=== PATIENT | female | born 1980 | race Caucasian/White ===

== ENCOUNTER 2020-01-25 09:33 | Outpatient (REF) | payer OTHER, SELFPAY ==
[2020-01-25 10:10] LABS: MANUAL DIFF FLAG NO
[2020-01-25 10:17] LABS: Basophils Percent Auto 0.4 % (0-2); Eosinophils Absolute Auto 0.1 X10*3/uL (0.0-0.4); Eosinophils Percent Auto 1.7 % (0-4); Hematocrit 42.7 % (37-47); Hemoglobin 13.8 g/dl (12.0-16.0); Imm Gran Abs Auto 0.03 X10*3/uL (0.00-0.03); Imm Gran Pct Auto 0.4 % (0.0-0.4); Lymphocytes Absolute Auto 2.9 X10*3/uL (1.2-4.9); Lymphocytes Percent Auto 41.8 % (20-40); Mean Corpuscular HGB Conc 32.3 g/dl (31.0-35.0); Mean Corpuscular Hemoglobin 28.6 pg (27.0-33.0); Mean Corpuscular Volume 88.6 fL (80-98); Mean Platelet Volume 9.5 fL (9.4-12.3); Monocytes Absolute Auto 0.4 X10*3/uL (0.1-1.2); Monocytes Percent Auto 5.8 % (2-11); Neutrophils Absolute Auto 3.5 X10*3/uL (2.0-8.3); Neutrophils Percent Auto 49.9 % (45-73); Platelet Count 328 X10*3/uL (160-400); Red Blood Count 4.82 X10*6/uL (4.20-5.50); Red Cell Distribution Width 12.3 % (11.0-16.0)
[2020-01-25 10:53] LABS: Alanine Aminotransferase 20 U/L (0-31); Albumin Level 4.5 g/dL (3.5-5.0); Alkaline Phosphatase 48 U/L (39-117); Anion Gap 13 (12-20); Aspartate Amino Transferase 17 U/L (5-31); Bilirubin Total 0.2 mg/dL (0.0-1.0); Blood Urea Nitrogen 12 mg/dL (9-16); Carbon Dioxide 26 mmol/L (22-29); Chloride 104 mmol/L (96-108); Cholesterol 134 mg/dL; Estimated Glomerular Filt Rate > 60; Glucose Fasting 89 mg/dL (60-99); HDL Cholesterol 46 mg/dL; LDL Cholesterol Calculated 71 mg/dl; Potassium 4.6 mmol/l (3.3-5.1); Sodium 138 mmol/L (135-145); Total Protein 7.3 g/dL (6.5-8.0); Triglycerides 87 mg/dL
[2020-01-27 08:31] LABS: HIV AB/AG Nonreactive (Nonreactive); HIV Num 1 0.09 S/CO (0.00-0.99)
== END 2020-01-25 09:34 | disposition home or self-care (01) ==
LOC: HO.LAB 09:33
PROVIDERS: PCP Internal Medicine; Visit Provider Internal Medicine
DX: E66.9 Obesity, unspecified (principal); G56.03 Carpal tunnel syndrome, bilateral upper limbs; I10 Essential (primary) hypertension; Z68.36 Body mass index [BMI] 36.0-36.9, adult
CPT/HCPCS: 36415; 80053; 80061; 84443; 85025; 87389

== ENCOUNTER 2020-02-05 13:13 | Outpatient (REF) | payer OTHER, SELFPAY | END 2020-02-05 13:14 | disposition home or self-care (01) | LOC: HO.LAB 13:13 | PROVIDERS: Visit Provider Internal Medicine | DX: Z20.828 Contact with and (suspected) exposure to other viral communicable diseases (principal) | CPT/HCPCS: C9803; U0003 ==

== ENCOUNTER 2020-03-03 10:13 | Outpatient (REF) | payer OTHER, SELFPAY | END 2020-03-03 10:14 | disposition home or self-care (01) | LOC: HO.LAB 10:13 | PROVIDERS: Visit Provider Internal Medicine | DX: Z20.828 Contact with and (suspected) exposure to other viral communicable diseases (principal) | CPT/HCPCS: C9803; U0003 ==

== ENCOUNTER 2020-06-15 15:04 | Outpatient (REF) | payer OTHER, SELFPAY ==
--- NOTE | 2020-06-17 15:17 | MHC.AU.ANO ---
Adult Audiological Evaluation Date of Visit: 06/15/20 Reason for Appointment: Patient has been noticing occsional difficulty hearing. She notes that she has to have the television volume at a loud level. She has difficulty hearing soft spoken people and hearing in noise. She feels the left ear is worse. 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 Medical History: Medical History: High Blood Pressure Otoscopy: Right Ear: Unremarkable Left Ear: Unremarkable Tympanometry: Tympanometry performed due to: To assess integrity of the middle ear system Right Ear: Normal Middle Ear System (Type A) Left Ear: Normal Middle Ear System (Type A) Otoacoustic Emissions Frequency Range Used: 1.5-12 kHz Right Ear Results: Normal 1.5-4.0 kHz, Reduced 5.0-12 kHz Analysis: Reduced/Absent emissions suggest cochlear dysfunction Left Ear Results: Normal 1.5-3 kHz, Reduced 5.0-12 kHz Analysis: Reduced/Absent emissions suggest cochlear dysfunction Hearing Evaluation: Transducer(s) Used: Insert Earphones Method: Conventional Audiometry Stimuli Used: Pure Tones Right Ear: Description of Hearing: Normal hearing from 250-8000 Hz Left Ear: Description of Hearing: Overall normal hearing, with one borderline-normal threshold at 4000 Hz Speech Recognition Threshold (SRT): Method Used: Recorded Lists Stimuli Used: Spondee Words Right Ear: 10 dBHL Left Ear: 10 dBHL Word Discrimination: Method: Recorded Lists Word Lists Used: NU-6 Right Ear: 100% at 50 dBHL Left Ear: 92% at 50 dBHL QuickSIN: Right: 3 dB SNR loss, Left: 5 dB SNR loss Interpretation of Results: Hearing thresholds are overall normal bilaterally, with exception of one borderline-normal threshold at 4000 Hz in the left ear. OAEs were reduced bilaterally in the high frequencies. Word discrimination in the left ear was slightly lower, but not by a statistically significant amount. QuickSIN in the left ear showed slightly more difficulty than the right, but not by a significant amount. Recommendations: Audiological re-evaluation is recommended in one year, or sooner if changes are noted. If perception of left-sided difficulty persists or increases, consultation with Ear, Nose, and Throat may be warranted. Use of hearing protection at work is highly recommended when loud machinery is in use. Diagnosis: Primary Diagnosis: H93.293 Abnormal Auditory Perception Services Performed: Comprehensive Audiological Evaluation (CPT 70614), Diagnostic Otoacoustic Emissions (CPT 84256, 26+TC), Tympanometry (CPT 74366) Signature: Provider: Marleen Chapman, CCC-A
== END 2020-06-15 15:05 | disposition home or self-care (01) ==
LOC: HO.SH 15:04
PROVIDERS: Visit Provider Internal Medicine
DX: H93.293 Other abnormal auditory perceptions, bilateral (principal)
CPT/HCPCS: 92557; 92567; 92588

== ENCOUNTER 2020-06-29 08:59 | Day surgery (SDC) | payer OTHER, SELFPAY ==
[2020-06-23 10:22] VITALS: BMI 34.9
[2020-06-29 09:12] VITALS: BP 156/85; PULSE 102; RESP 18; TEMP 36.5; O2SAT 98; BMI 34.9
[2020-06-29 09:15] LABS: UPreg QC Valid YES; Urine Pregnancy NEGATIVE (NEGATIVE)
[2020-06-29] MEDS: Lactated Ringers 1,000 ML 50 ML IV (09:34)
--- NOTE | 2020-06-29 09:34 | P.CONAN_ITS ---
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 If so, by whom?: No Advance Directives Information Provided: No Recently lost weight without trying: No Meds Allergies Allergy/AdvReac Type Severity Reaction Status Date / Time No Known Allergies Allergy Verified 06/23/20 10:38 [No Known Allergies*] Active Medications: Current Medications Generic Name Dose Route Start Last Admin Trade Name Freq PRN Reason Stop Dose Admin Lactated Ringer's 1,000 mls @ 50 mls/hr 06/29/20 07:30 Lr IV .Q20H [facility] Home Medications Medication Instructions Recorded Confirmed Last Taken Type omeprazole 40 mg PO DAILY 06/23/20 06/23/20 Unknown History Exam Exam Date and Time: June 29, 2020 0934 Height,Weight and Vital Signs: Height 5 ft 5 in Weight 95.254 kg Last Vital Signs Temp 97.7 F 06/29/20 09:12 Pulse 102 H 06/29/20 09:12 Resp 18 06/29/20 09:12 BP 156/85 H 06/29/20 09:12 Pulse Ox 98 06/29/20 09:12 Pertinent Lab Results Pertinent Lab Results: Laboratory Tests 06/29/20 09:05 Urine Test NEGATIVE Airway Mallampati Class: II (Caps lateral) TM Dist: >3cm Neck ROM: Full Heart: RrR Lungs: CTA BL Assessment and Plan Assessment Anesthesia Assessment: Anesthesia Plan Discussed and Chart Reviewed Final Anesthetic Review NPO: Yes ASA Class: I Final Preanesthetic Review: No Changes in Pt Med Stat and Consent Obtained/Reviewed Patient Risk: Intermediate Procedure Risk: Intermediate Anesthetic Plan Anesthetic Plan: MAC: Disposition: Standard PACU
[2020-06-29 11:11] VITALS: BP 106/61; PULSE 82; RESP 16; TEMP 36.1; O2SAT 95
--- NOTE | 2020-06-29 11:19 | PM.OP ---
Brief Operative Note Date of Service: 06/29/20 Pre-op diagnosis: Dysphagia Post-op diagnosis: other (Narrowing at EG Junction, R/O EOE, ? of Achalasia) Procedure: EGD with Balloon dilation and biopsies Surgeon: Chad Reyes Anesthesia: MAC Estimated blood loss (mL): 4.0 Pathology: other (A. Esophagus at 25cm) Condition: stable Disposition: PACU
[2020-06-29 11:26] VITALS: BP 120/73; PULSE 66; RESP 18; O2SAT 97
--- NOTE | 2020-06-29 11:37 | OP_ITS ---
SURGEON: Chad Reyes MD INDICATIONS: Full consent has been obtained from her for this, including risks of bleeding and perforation. PREOPERATIVE DIAGNOSIS: Dysphagia. POSTOPERATIVE DIAGNOSIS: PROCEDURE PERFORMED: Esophagogastroduodenoscopy with balloon dilation of gastroesophageal junction, and biopsies. ESTIMATED BLOOD LOSS: COMPLICATIONS: ANESTHESIA: Monitored anesthesia care. ASSISTANTS: SPECIMENS: POSTOPERATIVE DIAGNOSES: Dysphagia, apparent esophageal stricture at gastroesophageal junction, question of achalasia, rule out eosinophilic esophagitis. DESCRIPTION OF PROCEDURE: The patient was placed in the left lateral decubitus position. The Olympus video gastroscope was passed into the posterior oropharynx and upper esophagus under direct vision. The scope was passed slowly into the distal esophagus. The gastroesophageal junction appeared at 38 cm. With insufflation of air, I was able to visualize the lumen, but there was definitely some puckering right at the gastroesophageal junction. The entire esophagus did appear to be somewhat dilated with some diminished peristalsis, although this did not appear overly apparent. There were no esophageal mucosal abnormalities and no sign of any proximal esophageal rings. With gentle pressure, I was able to advance the scope from the esophagus into the stomach. However, there was definitely a pop sensation as the scope entered into the stomach. There was a minimal hiatal hernia. The scope was advanced to the pylorus and the duodenum was cannulated to the descending portion. The duodenum including the bulb appeared normal without mass or ulceration. The scope was withdrawn back into the stomach. The gastric antrum and body appeared normal with good peristalsis. Scope was retroflexed visualizing the proximal stomach carefully, which appeared normal, without any sign of mass or ulceration. The scope was straightened out and withdrawn back into the esophagus. Again, there was no sign of any inflammation, Kumari's mucosa, nor any definitive stricture, although again the gastroesophageal junction did appear tight. I did use [employer] incremental balloons to dilate the gastroesophageal junction from 12 mm to 15 mm at the recommended pressure for between 30 and 60 seconds each. I then used an 18 mm to a 19 mm to a 20 mm balloon at the recommended pressure for 30 and 60 seconds each. Post dilation, there was heme noted and was definitely easier to move the scope from the esophagus into the stomach. The scope was withdrawn through the remainder of the esophagus, which appeared normal other than what appeared to be some component of a dilated esophagus and diminished peristalsis. There were no proximal esophageal rings. Biopsies were obtained at 25 cm. The scope was withdrawn from the patient. She tolerated the procedure well and was returned to the recovery area in stable condition. IMPRESSION: 1. Component of narrowing and/or stricture at the gastroesophageal junction, status post balloon dilation. 2. Rule out eosinophilic esophagitis. 3. Question of achalasia. PLAN: The results of the biopsies will be checked. She will continue Prilosec, but I shall increase that to b.i.d. for the time being. Depending upon the clinical results, we may need to proceed with esophageal motility studies to assess for any underlying achalasia and possibly barium swallow. MD CAPRI Bazan/MOE / [id number]
[2020-06-29 11:41] VITALS: BP 133/82; PULSE 62; RESP 20; TEMP 36.7; O2SAT 99
== END 2020-06-29 12:13 | disposition home or self-care (01) ==
PROVIDERS: PCP Internal Medicine; Visit Provider Internal Medicine
PROC: (CPT 43249; principal; 2020-06-29 09:50)
DX: K22.2 Esophageal obstruction (principal); K21.9 Gastro-esophageal reflux disease without esophagitis; K44.9 Diaphragmatic hernia without obstruction or gangrene; Z86.16 Personal history of COVID-19; Z79.899 Other long term (current) drug therapy
CPT/HCPCS: 43249; 43239; 81025; 88305; C1726

== ENCOUNTER 2020-10-13 09:33 | Outpatient (REF) | payer OTHER, SELFPAY ==
--- NOTE | ~2020-10-13 | FL_ITS ---
EXAMINATION: FL BARIUM SWALLOW CLINICAL INFORMATION: Dysphagia. Question achalasia. COMPARISON: None TECHNIQUE: Barium swallow examination is performed using fluoroscopic evaluation in addition to multiple fluoroscopic spot views. The patient is imaged both upright and prone and using both thick and thin sulfate along with effervescent granules. Fluoroscopy time: 1.5 minutes DAP: 65 Gycm2 Images: 57 FINDINGS: The swallowing mechanism is normal appearing. No aspiration or penetration is seen. The esophagus is dilated down to the GE junction. This has the appearance of achalasia. The esophagus remained dilated for a long period of time and then emptied rapidly. Abnormal esophageal motility with retrograde peristalsis was seen patient in the upright position. There was temporary stasis of the barium tablet in the distal esophagus at the GE junction. The esophagus never fully opened at the GE junction suggestive of a stricture No gastroesophageal reflux is seen. FL/FL barium swallow IMPRESSION: Dilated thoracic esophagus down to the GE junction and abnormal abnormal motility with retrograde peristalsis with the patient in the upright position. This has the appearance of achalasia or possibly severe spasm. The esophagus never fully opened at the GE junction suggestive of a stricture.
== END 2020-10-13 09:34 | disposition home or self-care (01) ==
LOC: HO.XRAY 09:33
PROVIDERS: Visit Provider Internal Medicine
DX: R13.10 Dysphagia, unspecified (principal)
CPT/HCPCS: 74220

== ENCOUNTER 2021-02-17 14:11 | Outpatient (REF) | payer OTHER, SELFPAY ==
[2021-02-17 14:27] LABS: MANUAL DIFF FLAG NO
[2021-02-17 14:40] LABS: Basophils Percent Auto 0.3 % (0-2); Eosinophils Absolute Auto 0.1 X10*3/uL (0.0-0.4); Hematocrit 39.2 % (37.0-47.0); Hemoglobin 12.7 g/dl (12.0-16.0); Imm Gran Abs Auto 0.03 X10*3/uL (0.00-0.03); Imm Gran Pct Auto 0.3 % (0.0-0.4); Lymphocytes Absolute Auto 3.5 X10*3/uL (1.2-4.9); Lymphocytes Percent Auto 35.7 % (20-40); Mean Corpuscular HGB Conc 32.4 g/dl (31.0-35.0); Mean Corpuscular Hemoglobin 27.8 pg (27.0-33.0); Mean Corpuscular Volume 85.8 fL (80.0-98.0); Mean Platelet Volume 9.4 fL (9.4-12.3); Monocytes Absolute Auto 0.5 X10*3/uL (0.1-1.2); Monocytes Percent Auto 5.5 % (2-11); Neutrophils Absolute Auto 5.6 x10*3/uL (2.0-8.3); Neutrophils Percent Auto 57.2 % (45-73); Platelet Count 325 X10*3/uL (160-400); Red Blood Count 4.57 X10*6/uL (4.20-5.50); White Blood Count 9.8 X10*3/uL (4.8-10.8)
[2021-02-17 15:03] LABS: Alanine Aminotransferase 21 U/L (0-31); Albumin Level 4.4 g/dL (3.5-5.0); Alkaline Phosphatase 56 U/L (39-117); Anion Gap 9 (12-20); Aspartate Amino Transferase 19 U/L (5-31); Bilirubin Total 0.2 mg/dL (0.0-1.0); Blood Urea Nitrogen 12 mg/dL (9-16); Calcium 9.1 mg/dL (8.4-10.2); Carbon Dioxide 30 mmol/L (22-29); Chloride 101 mmol/L (96-108); Cholesterol 130 mg/dL; Estimated Glomerular Filt Rate > 60; Glucose Random 85 mg/dL (60-115); HDL Cholesterol 39 mg/dL; LDL Cholesterol Calculated 72 mg/dl; Potassium 3.5 mmol/L (3.3-5.1); Sodium 136 mmol/L (135-145); Total Protein 7.5 g/dL (6.5-8.0); Triglycerides 99 mg/dL
[2021-02-17 15:24] LABS: Thyroid Stimulating Hormone 0.95 uIU/mL (0.32-4.0)
[2021-02-17 15:28] LABS: Creatinine Urine 175.25 mg/dL; Protein/Creatinine Ratio, Ur 0.07 (<0.2); Total Protein Urine Random 13 mg/dL (<12)
== END 2021-02-17 14:12 | disposition home or self-care (01) ==
LOC: HO.LAB 14:11
PROVIDERS: PCP Internal Medicine; Visit Provider Internal Medicine
DX: Z00.01 Encounter for general adult medical examination with abnormal findings (principal); K22.0 Achalasia of cardia; J31.2 Chronic pharyngitis; I10 Essential (primary) hypertension; F17.201 Nicotine dependence, unspecified, in remission
CPT/HCPCS: 36415; 80053; 80061; 84156; 84443; 85025

== ENCOUNTER 2021-02-26 12:49 | Outpatient (REF) | payer OTHER, SELFPAY ==
--- NOTE | ~2021-02-26 | MM_ITS ---
EXAMINATION: MM DIAGNOSTIC DIGITAL BREAST TOMOSYNTHESIS, BILATERAL US DIAGNOSTIC ULTRASOUND BREAST, RIGHT CLINICAL INFORMATION: 40-year-old female with 3 episodes of bloody right nipple spotting with squeezing. Intermittent bilateral clear nipple discharge. No palpable mass. No prior breast imaging. No known family history breast cancer. The lifetime risk of breast cancer based on the Tyrer-Cuzick Model is 11%. COMPARISON: None (current study represents initial baseline exam). TECHNIQUE: Digital breast tomosynthesis is performed in both the craniocaudal and mediolateral oblique views along with computer-aided detection (CAD). Synthesized 2D images are generated from the tomosynthesis. Ultrasound ultrasound right breast is targeted to the retroareolar and periareolar region using grayscale imaging and color Doppler without and with harmonics. FINDINGS: There are scattered areas of fibroglandular density (ACR BI-RADS breast composition Category b). Breast tissue composition borders on predominantly fatty. There is no mass or architectural abnormality or abnormal calcifications. The axilla and skin contours are unremarkable. No duct ectasia. Ultrasound demonstrates no cystic or solid mass or architectural abnormality. No focal duct ectasia. No skin thickening or edema tracking in soft tissue planes. Results are discussed with the patient at time of visit. MM/MM tomosynthesis diagnostic BI IMPRESSION: No mammographic evidence of malignancy. Unremarkable targeted right breast ultrasound. ASSESSMENT: BI-RADS 1: Negative RECOMMENDATION: 1. Patient's intermittent scant nipple discharge should be managed based on the clinical impression. Given the history of bilateral involvement, correlation with laboratories should be considered. If there is recurrent bloody nipple discharge, MRI breasts without and with gadolinium contrast may be considered for further assessment. 2. Otherwise, routine annual screening mammography, beginning age 40, or earlier as clinical risk factors warrant. This patient's information was entered into a reminder system with a target due date for their next mammogram.
== END 2021-02-26 12:50 | disposition home or self-care (01) ==
LOC: HO.MAMMO 12:49
PROVIDERS: Visit Provider Internal Medicine
DX: N64.52 Nipple discharge (principal)
CPT/HCPCS: 76642; 77062; 77066

== ENCOUNTER 2022-03-30 08:10 | Outpatient (REF) | payer OTHER, SELFPAY ==
[2022-03-30 08:29] LABS: MANUAL DIFF FLAG NO
[2022-03-30 08:46] LABS: Basophils Percent Auto 0.5 % (0-2); Eosinophils Absolute Auto 0.1 X10*3/uL (0.0-0.4); Eosinophils Percent Auto 0.8 % (0-4); Hematocrit 42.6 % (37.0-47.0); Hemoglobin 13.4 g/dl (12.0-16.0); Imm Gran Abs Auto 0.04 X10*3/uL (0.00-0.03); Imm Gran Pct Auto 0.5 % (0.0-0.4); Lymphocytes Absolute Auto 2.7 X10*3/uL (1.2-4.9); Lymphocytes Percent Auto 30.4 % (20-40); Mean Corpuscular HGB Conc 31.5 g/dl (31.0-35.0); Mean Corpuscular Hemoglobin 26.5 pg (27.0-33.0); Mean Corpuscular Volume 84.4 fL (80.0-98.0); Mean Platelet Volume 9.2 fL (9.4-12.3); Monocytes Absolute Auto 0.6 X10*3/uL (0.1-1.2); Monocytes Percent Auto 6.3 % (2-11); Neutrophils Absolute Auto 5.4 x10*3/uL (2.0-8.3); Neutrophils Percent Auto 61.5 % (45-73); Platelet Count 348 X10*3/uL (160-400); Red Blood Count 5.05 X10*6/uL (4.20-5.50); Red Cell Distribution Width 13.1 % (11.0-16.0); White Blood Count 8.7 X10*3/uL (4.8-10.8)
[2022-03-30 08:56] LABS: Estimated Average Glucose 111 mg/dL; Hemoglobin A1c % 5.5 %
[2022-03-30 09:36] LABS: Alanine Aminotransferase 29 U/L (0-31); Albumin Level 4.3 g/dL (3.5-5.0); Alkaline Phosphatase 52 U/L (39-117); Anion Gap 10 (12-20); Aspartate Amino Transferase 23 U/L (5-31); Bilirubin Total 0.3 mg/dL (0.0-1.0); Blood Urea Nitrogen 12 mg/dL (9-16); Calcium 9.6 mg/dL (8.4-10.2); Carbon Dioxide 29 mmol/L (22-29); Chloride 102 mmol/L (96-108); Cholesterol 148 mg/dL; Estimated Glomerular Filt Rate > 60; Glucose Random 107 mg/dL (60-115); HDL Cholesterol 44 mg/dL; LDL Cholesterol Calculated 80 mg/dl; Potassium 4.1 mmol/L (3.3-5.1); Sodium 137 mmol/L (135-145); Thyroid Stimulating Hormone 1.31 uIU/mL (0.32-4.0); Total Protein 7.3 g/dL (6.5-8.0); Triglycerides 121 mg/dL
[2022-03-30 10:01] LABS: Creatinine Urine 226.21 mg/dL; Microalbum/Creatinine Ratio Ur 32.7 ug/mg cr; Total Protein Urine Random 23 mg/dL (<12)
== END 2022-03-30 08:11 | disposition home or self-care (01) ==
LOC: HO.LAB 08:10
PROVIDERS: PCP Internal Medicine; Visit Provider Internal Medicine
DX: Z00.00 Encounter for general adult medical examination without abnormal findings (principal); I10 Essential (primary) hypertension; F17.211 Nicotine dependence, cigarettes, in remission; R80.9 Proteinuria, unspecified
CPT/HCPCS: 36415; 80053; 80061; 82043; 83036; 84156; 84443; 85025

== ENCOUNTER 2023-01-16 10:34 | Outpatient (REF) | payer OTHER, SELFPAY ==
[2023-01-16 11:13] LABS: MANUAL DIFF FLAG NO
[2023-01-16 11:45] LABS: Basophils Absolute Auto 0.1 X10*3/uL (0.0-0.2); Basophils Percent Auto 0.6 % (0-2); Eosinophils Absolute Auto 0.1 X10*3/uL (0.0-0.4); Eosinophils Percent Auto 0.8 % (0-4); Hematocrit 42.1 % (37.0-47.0); Hemoglobin 13.4 g/dl (12.0-16.0); Imm Gran Abs Auto 0.06 X10*3/uL (0.00-0.03); Imm Gran Pct Auto 0.6 % (0.0-0.4); Lymphocytes Percent Auto 30.9 % (20-40); Mean Corpuscular HGB Conc 31.8 g/dl (31.0-35.0); Mean Corpuscular Hemoglobin 26.6 pg (27.0-33.0); Mean Corpuscular Volume 83.7 fL (80.0-98.0); Mean Platelet Volume 9.5 fL (9.4-12.3); Monocytes Absolute Auto 0.5 X10*3/uL (0.1-1.2); Monocytes Percent Auto 4.6 % (2-11); Neutrophils Absolute Auto 6.1 x10*3/uL (2.0-8.3); Neutrophils Percent Auto 62.5 % (45-73); Platelet Count 406 X10*3/uL (160-400); Red Blood Count 5.03 X10*6/uL (4.20-5.50); Red Cell Distribution Width 13.3 % (11.0-16.0); White Blood Count 9.8 X10*3/uL (4.8-10.8)
[2023-01-16 12:47] LABS: Alanine Aminotransferase 26 U/L (0-31); Albumin Level 4.4 g/dL (3.5-5.0); Alkaline Phosphatase 55 U/L (39-117); Anion Gap 14 (12-20); Aspartate Amino Transferase 22 U/L (5-31); Bilirubin Total 0.4 mg/dL (0.0-1.0); Blood Urea Nitrogen 10 mg/dL (9-16); Calcium 9.7 mg/dL (8.4-10.2); Carbon Dioxide 27 mmol/L (22-29); Chloride 102 mmol/L (96-108); Estimated Glomerular Filt Rate > 60; Glucose Random 93 mg/dL (60-115); Potassium 3.9 mmol/L (3.3-5.1); Sodium 139 mmol/L (135-145); Total Protein 8.2 g/dL (6.5-8.0)
[2023-01-16 13:22] LABS: Creatinine Urine 138.66 mg/dL; Microalbum/Creatinine Ratio Ur 302.1 ug/mg cr (<30)
== END 2023-01-16 10:35 | disposition home or self-care (01) ==
LOC: HO.LAB 10:34
PROVIDERS: PCP Internal Medicine; Visit Provider Internal Medicine
DX: F32.5 Major depressive disorder, single episode, in full remission (principal); F41.0 Panic disorder [episodic paroxysmal anxiety]; I10 Essential (primary) hypertension; R80.9 Proteinuria, unspecified
CPT/HCPCS: 36415; 80053; 82043; 82570; 85025

== ENCOUNTER 2023-01-28 08:58 | Outpatient (REF) | payer OTHER, SELFPAY | END 2023-01-28 08:59 | disposition home or self-care (01) | LOC: HO.MAMMO 08:58 | PROVIDERS: PCP Internal Medicine; Visit Provider Internal Medicine | DX: Z12.31 Encounter for screening mammogram for malignant neoplasm of breast (principal) | CPT/HCPCS: 77063; 77067 ==

== ENCOUNTER → 2023-01-28 09:00 | Outpatient (BNV) | payer OTHER, SELFPAY | PROVIDERS: PCP Internal Medicine; Visit Provider Radiology Diagnostic Radiology | DX: Z12.31 Encounter for screening mammogram for malignant neoplasm of breast (principal) | CPT/HCPCS: 77063; 77067 ==

== ENCOUNTER 2024-01-24 10:51 | Outpatient (REF) | payer OTHER, SELFPAY ==
[2024-01-24 11:26] LABS: MANUAL DIFF FLAG NO
[2024-01-24 11:52] LABS: Basophils Percent Auto 0.2 % (0-2); Eosinophils Absolute Auto 0.1 X10*3/uL (0.0-0.4); Eosinophils Percent Auto 0.4 % (0-4); Hematocrit 37.9 % (37.0-47.0); Hemoglobin 12.4 g/dl (12.0-16.0); Imm Gran Abs Auto 0.05 X10*3/uL (0.00-0.03); Imm Gran Pct Auto 0.4 % (0.0-0.4); Lymphocytes Absolute Auto 3.2 X10*3/uL (1.2-4.9); Lymphocytes Percent Auto 26.1 % (20-40); Mean Corpuscular HGB Conc 32.7 g/dl (31.0-35.0); Mean Corpuscular Volume 82.4 fL (80.0-98.0); Mean Platelet Volume 9.3 fL (9.4-12.3); Monocytes Absolute Auto 0.7 X10*3/uL (0.1-1.2); Monocytes Percent Auto 5.3 % (2-11); Neutrophils Absolute Auto 8.2 x10*3/uL (2.0-8.3); Neutrophils Percent Auto 67.6 % (45-73); Platelet Count 348 X10*3/uL (160-400); White Blood Count 12.2 X10*3/uL (4.8-10.8)
[2024-01-24 12:27] LABS: Creatinine Urine 51.36 mg/dL; Microalbum/Creatinine Ratio Ur 56.4 ug/mg cr (<30)
[2024-01-24 12:38] LABS: Alanine Aminotransferase 27 U/L (0-31); Albumin Level 4.2 g/dL (3.5-5.0); Alkaline Phosphatase 55 U/L (39-117); Anion Gap 10 (12-20); Aspartate Amino Transferase 27 U/L (5-31); Bilirubin Total 0.4 mg/dL (0.0-1.0); Blood Urea Nitrogen 9 mg/dL (9-16); Calcium 9.6 mg/dL (8.4-10.2); Carbon Dioxide 28 mmol/L (22-29); Chloride 103 mmol/L (96-108); Cholesterol 132 mg/dL (<200); Estimated Glomerular Filt Rate > 60; Glucose Random 98 mg/dL (60-115); HDL Cholesterol 40 mg/dL (>40); LDL Cholesterol Calculated 72 mg/dL (<100); Potassium 3.2 mmol/L (3.3-5.1); Sodium 138 mmol/L (135-145); Total Protein 7.4 g/dL (6.5-8.0); Triglycerides 100 mg/dL (<150)
[2024-01-24 12:54] LABS: Thyroid Stimulating Hormone 0.71 uIU/mL (0.32-4.0)
[2024-01-24 13:38] LABS: CT PCR NOT DETECTED (Not Detect.); NG PCR NOT DETECTED (Not Detect.)
== END 2024-01-24 10:52 | disposition home or self-care (01) ==
LOC: HO.LAB 10:51
PROVIDERS: PCP Internal Medicine; Visit Provider Internal Medicine
DX: Z00.01 Encounter for general adult medical examination with abnormal findings (principal); F17.201 Nicotine dependence, unspecified, in remission; F32.2 Major depressive disorder, single episode, severe without psychotic features; I10 Essential (primary) hypertension; R74.01 Elevation of levels of liver transaminase levels; Z12.4 Encounter for screening for malignant neoplasm of cervix
CPT/HCPCS: 80053; 80061; 82043; 82570; 84443; 85025; 87491; 87591

== ENCOUNTER 2024-03-20 09:09 | Outpatient (REF) | payer OTHER, SELFPAY ==
[2024-03-20 09:47] LABS: MANUAL DIFF FLAG NO
[2024-03-20 10:50] LABS: Basophils Absolute Auto 0.1 X10*3/uL (0.0-0.2); Basophils Percent Auto 0.5 % (0-2); Eosinophils Absolute Auto 0.1 X10*3/uL (0.0-0.4); Eosinophils Percent Auto 0.8 % (0-4); Hematocrit 40.3 % (37.0-47.0); Hemoglobin 13.2 g/dl (12.0-16.0); Imm Gran Abs Auto 0.04 X10*3/uL (0.00-0.03); Imm Gran Pct Auto 0.4 % (0.0-0.4); Lymphocytes Absolute Auto 2.9 X10*3/uL (1.2-4.9); Lymphocytes Percent Auto 31.8 % (20-40); Mean Corpuscular HGB Conc 32.8 g/dl (31.0-35.0); Mean Corpuscular Hemoglobin 28.1 pg (27.0-33.0); Mean Corpuscular Volume 85.7 fL (80.0-98.0); Mean Platelet Volume 9.9 fL (9.4-12.3); Monocytes Absolute Auto 0.5 X10*3/uL (0.1-1.2); Monocytes Percent Auto 5.5 % (2-11); Neutrophils Absolute Auto 5.6 x10*3/uL (2.0-8.3); Platelet Count 345 X10*3/uL (160-400); Red Cell Distribution Width 14.8 % (11.0-16.0); White Blood Count 9.2 X10*3/uL (4.8-10.8)
[2024-03-20 11:27] LABS: Alanine Aminotransferase 28 U/L (0-31); Albumin Level 4.3 g/dL (3.5-5.0); Alkaline Phosphatase 52 U/L (39-117); Anion Gap 7 (12-20); Aspartate Amino Transferase 25 U/L (5-31); Bilirubin Total 0.5 mg/dL (0.0-1.0); Blood Urea Nitrogen 7 mg/dL (9-16); Calcium 9.1 mg/dL (8.4-10.2); Carbon Dioxide 26 mmol/L (22-29); Chloride 108 mmol/L (96-108); Cholesterol 149 mg/dL (<200); Estimated Glomerular Filt Rate > 60; Glucose Random 82 mg/dL (60-115); HDL Cholesterol 45 mg/dL (>40); LDL Cholesterol Calculated 83 mg/dL (<100); Potassium 4.2 mmol/L (3.3-5.1); Sodium 137 mmol/L (135-145); Total Protein 7.6 g/dL (6.5-8.0); Triglycerides 109 mg/dL (<150)
== END 2024-03-20 09:10 | disposition home or self-care (01) ==
LOC: HO.LAB 09:09
PROVIDERS: PCP Internal Medicine; Referring Provider Internal Medicine; Visit Provider Surgery
DX: F17.211 Nicotine dependence, cigarettes, in remission (principal); F33.41 Major depressive disorder, recurrent, in partial remission; I10 Essential (primary) hypertension; R80.8 Other proteinuria; K64.5 Perianal venous thrombosis
CPT/HCPCS: 36415; 80053; 80061; 85025; 99202

== ENCOUNTER 2024-03-20 09:09 | Outpatient (AMB) | payer OTHER, SELFPAY ==
--- NOTE | 2024-03-20 09:11 | A.OFFVIS_ITS ---
Intake Visit Reasons: Thrombosed external hemorrhoids Intake Note: Patient referred by pcp Dr. Hurst for external hemorrhoids. Patient c/o: pain, unable to sit. Tried otc Preparation H with no help. States both constipation, diarrhea. Photographer Aerial Required: No Accompanied by: Self / Same As Patient Allergies No Known Allergies [No Known Allergies*] Allergy (Verified 03/20/24 09:16) Medication List - Last Reconciled 03/20/24 by Amol Gould MD bupropion HCl XL 150 mg PO QAM hydrocortisone-pramoxine 1-1 % (Proctofoam HC) 1 appl SD TID-QID PRN losartan 100 mg PO DAILY metoprolol succinate ER 100 mg PO DAILY sertraline 100 mg PO DAILY HPI Comments Details: Patient presents here with a longstanding history of hemorrhoidal symptoms. This has been at least 10 years time. Over the last few weeks time, she has had increased symptomatology and that whenever hemorrhoids became swollen, very painful, and had some spontaneous bleeding. This has progressed over the last weeks time. She presents here for further evaluation. She has no other GI issues or complaints prior to this. She tolerates a diet. She has regular bowel habits. Occasional history of constipation. She has never had colonoscopy before. She has seen Dr. Reyes in the past for upper endoscopy and arrangements were made at completion of today's visit for her to follow-up with him or guarding colonoscopy. 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 Rectal exam demonstrates a resolving thrombosed left quadrant hemorrhoid in the prone position. Rectal exam was deferred secondary to patient's discomfort. Assessment & Plan Assessment & Plan (1) Thrombosed external hemorrhoids: Code(s): K64.5 - Perianal venous thrombosis Category: Surgical Plan Patient at present states her symptoms are improving. We will prescribe her some Proctofoam cream and other suggestions including Sitz baths with which azo, stool softeners and avoid prolonged sitting on the toilet. She did not want to have the hemorrhoid thrombus removed or hemorrhoidectomy in the office. Should she wish to pursue hemorrhoidectomy, she has been instructed to contact the office and will otherwise follow-up p.r.n.. As noted above she will contact Dr. Reyes regarding screening colonoscopy in the future. All questions answered. Medications: New hydrocortisone-pramoxine 1-1 % (Proctofoam HC) 1 appl SD TID-QID PRN 10 grams 0RF hemorrhoids Coding Level of Care Code New Pt Level 4 (70290) Diagnoses Thrombosed external hemorrhoids K64.5
== END 2024-03-20 09:43 | disposition home or self-care (01) ==
PROVIDERS: PCP Internal Medicine; Referring Provider Internal Medicine; Visit Provider Surgery
DX: K64.5 Perianal venous thrombosis (principal)
CPT/HCPCS: 99204

== ENCOUNTER 2024-05-10 09:49 | Emergency (ER) | payer OTHER, SELFPAY ==
--- NOTE | ~2024-05-10 | XR_ITS ---
EXAMINATION: XR RIBS, LEFT CLINICAL INFORMATION: pain COMPARISON: None available. TECHNIQUE: PA chest, and 3 views of the left ribs were obtained. FINDINGS: Lungs are clear. No consolidation, pneumothorax, or pleural effusion. The cardiomediastinal silhouette and pulmonary vasculature are normal. Osseous structures are unremarkable. Ribs are intact. No fractures are identified. No focal bone lesion. XR/XR ribs LT min 3V w CXR1V IMPRESSION: Normal chest and normal left rib radiographs. Electronically signed by: Olu Fu MD 05/10/2024 11:30 AM [facility]
[2024-05-10 10:10] VITALS: BP 177/85; PULSE 53; RESP 19; TEMP 36.6; O2SAT 98; BMI 31.4
--- NOTE | 2024-05-10 11:58 | ED.GENADULT ---
HPI - General Adult General Chief complaint: General Medical Stated complaint: L Side Rib Pain No Injury Time Seen by Provider: 05/10/24 11:47 Source: patient Limitations: no limitations History of Present Illness ED Provider: Fanta Em PA-C HPI narrative: The patient is a 43-year-old female who presents with left lateral chest wall pain x4 days. Patient states she has had a recent cough and cold symptoms preceding the discomfort. Denies concurrent cough, shortness of breath or fever. Pain worse with movement of torso and palpation of chest wall. Denies trauma. Related Data Home Medications ?Medication ?Instructions ?Recorded ?Confirmed bupropion HCl 150 mg 24 hr tablet, 150 mg PO QAM 03/20/24 03/20/24 extended release losartan 100 mg tablet 100 mg PO DAILY 03/20/24 03/20/24 metoprolol succinate 100 mg 100 mg PO DAILY 03/20/24 03/20/24 tablet,extended release 24 hr sertraline 100 mg tablet 100 mg PO DAILY 03/20/24 03/20/24 Previous Rx's ?Medication ?Instructions ?Recorded hydrocortisone 1 %-pramoxine 1 % 1 appl MD TID-QID PRN hemorrhoids 03/20/24 rectal foam (Proctofoam HC) #10 grams methocarbamol 750 mg tablet 750 mg PO BEDTIME PRN pain, 05/10/24 moderate #7 tabs Allergies Allergy/AdvReac Type Severity Reaction Status Date / Time No Known Allergies Allergy Verified 05/10/24 10:11 [No Known Allergies*] Review of Systems Review of Systems: Yes all other systems are reviewed and are negative Constitutional: Constitutional: Denies fatigue and Denies fever(s) Cardiovascular: Cardiovascular: Reports chest pain and Denies dyspnea Respiratory: Respiratory: Denies cough and Denies dyspnea Gastrointestinal: Gastrointestinal: Denies abdominal pain, Denies nausea and Denies vomiting Genitourinary: Genitourinary: Denies hematuria, Denies dysuria and Denies flank pain Musculoskeletal: Musculoskeletal: Denies back pain Endocrine: Endocrine: Denies fatigue [facility] Past Medical History Attestation statement: The following information was validated with the patient. 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) Do you presently have visiting nurse or other home services: No Physical Exam ED Vital Signs: Vital Signs - 24 hr 05/10/24 10:10 Temperature 98 F Pulse Rate 53 Respiratory Rate 19 Blood Pressure 177/85 H Pulse Oximetry 98 Oxygen Delivery Method Room Air BMI result Body Mass Index 31.4 Const Other: Alert well-appearing Orientation/consciousness: patient oriented x3 Chest Other: Left chest wall tender to palpation without deformity Resp Effort & Inspection: normal respiratory effort Cardio Other: Normal peripheral perfusion Skin Other: Warm dry no rash Neuro General: patient oriented x3, no focal motor deficits and CN's II-XI intact bilaterally Psych Other: Calm cooperative Medical Decision Making Medical Decision Making MDM Narrative: The patient is a 43-year-old female who presents with left lateral chest wall pain x4 days. Patient states she has had a recent cough and cold symptoms preceding the discomfort. Denies concurrent cough, shortness of breath or fever. Pain worse with movement of torso and palpation of chest wall. Denies trauma. No chronic issues History: Per patient I have considered the following differential diagnoses: Chest wall strain, renal colic, pneumonia, costochondritis, rib fracture Plan: Chest x-ray was obtained from triage, it is normal. Given concurrent viral syndrome now with musculoskeletal discomfort, this is likely costochondritis. We will send with home care instructions. She can continue to follow up with the primary care provider. I have independently reviewed the following tests: Chest x-ray: XR/XR ribs LT min 3V w CXR1V IMPRESSION: Normal chest and normal left rib radiographs. Electronically signed by: Olu Fu MD 05/10/2024 11:30 AM [facility] Discharge Plan Discharge Clinical Impression: Chest wall pain, Costochondritis Patient Disposition: Home, Self-Care Instructions: Costochondritis (ED), Chest Wall Pain (ED) Additional Instructions: The chest x-ray was normal, given you had recent cough and cold symptoms, this is likely costochondritis causing chest wall pain. See home care instructions. Use [id number] ibuprofen 600 mg taken every 6 hours with food, with a muscle relaxant methocarbamol, as needed for additional pain. To note the muscle relaxant we will cause drowsiness, do not drive or operate machinery while taking this medication. Follow up with your primary care provider as needed. Prescriptions: New methocarbamol 750 mg tablet 750 mg PO BEDTIME PRN (Reason: pain, moderate) Qty: 7 0RF No Action metoprolol succinate 100 mg tablet extended release 24 hr 100 mg PO DAILY bupropion HCl 150 mg tablet extended release 24 hr 150 mg PO QAM sertraline 100 mg tablet 100 mg PO DAILY losartan 100 mg tablet 100 mg PO DAILY Proctofoam HC 1-1 % foam 1 appl MD TID-QID PRN (Reason: hemorrhoids) Qty: 10 0RF Print Language: [place]
[2024-05-10 12:13] VITALS: BP 177/85; PULSE 53; RESP 19; TEMP 36.6; O2SAT 98
--- OUTSIDE RECORDS SUMMARY | 2024-05-10 13:09 | XMS_ITS | Clinical Summary ---
Author Organization [facility] Address [address] [facility] [address] [place] [address] Phone Care Team Providers Care Telephonic Nurse Name Role Phone Annette Hurst MD Primary Care Provider Unav ailable Allergies No known active allergies Medications losartan-hydroC HLOROthiazide (HYZAAR) 100-25 MG per tablet Take 1 tablet by mouth 1 (one) time each day 09/20/2023 Active metoprolol succinate XL (TOPROL-XL) 100 MG 24 hr tablet Take 100 mg by mouth 1 (one) time each day 10/01/2023 Active sertraline (ZOLOFT) 100 MG tablet Take 100 mg by mouth 1 (one) time each day in the morning 08/23/2023 Active Active Problems Problem Noted Date Diagnosed Date Proteinuria, not otherwise specified 10/08/2023 Hypertension 10/08/2023 Pre-eclampsia added to pre-existing hypertension 12/15/2017 Family History Medical History Relation Comments Diabetes Father Hypertension Father Hypertension Mother Relation Status Comments Father Alive Mother Alive Social History Tobacco Use Types Packs/Day Years Used Date Smoking Tobacco: Every Day Cigarettes Tobacco Cessation:Ready to Q uit: Not Asked; Counseling Given: Not Answered Alcohol Use Standard Drinks/Week Comments Yes 0 (1 standard drink = 0.6 oz pure alcohol) Alcoholic Drinks/day: Occasional social drink Comments Unknown Sex and Gender Information Value Date Recorded Sex Assigned at Not on file Legal Sex Female 4:50 PM EST Gender Identity Not on file Sexual Orientation Not on file Last Filed Vital Signs Vital Sign Reading Time Taken Comments Blood Pressure 132/80 10/09/2023 11:53 AM EDT Pulse 66 10/09/2023 11:53 AM EDT Temperature - - Respiratory Rate - - Oxygen Saturation 97% 10/09/2023 11:53 AM EDT Inhaled Oxygen Concentration - - Weight 103 kg (227 lb 3.2 oz) 10/09/2023 11:53 A M EDT Height 165.1 cm (5' 5 ) 10/09/2023 11:53 AM EDT Body Mass Index 37.81 10/09/2023 11:53 AM EDT Plan of Treatment Upcoming Encounters Date Type Department Care Team (Late st Contact Info) Description 10/09/2024 11:40 AM EDT [facility] [address] [address] Peng Martin MD [address] [address] Health Maintenance Due Date Last Done Comments Pneumococcal Vaccine: Pediat rics (0 to 5 Years) and At-Risk Patients (6 to 64 Years) (1 of 2 - PCV) 1988 Hepatitis B Vaccine (1 of 3 - 19+ 3-dose series) 11/23 Influenza Vaccine (#1) 2023 [place] [address] [facility] [address] Care Teams Telephonic Nurse Relationship Specialty Start Date End Date Annette Hurst MD [address] [place] [address] [place] [address] PCP - General Internal Medicine 10/09/23
--- OUTSIDE RECORDS SUMMARY | 2024-05-10 13:09 | XMS_ITS | Patient Health Record ---
Author Organization [facility] Address [address] [place] [address] Care Team Providers Care Percussion Tuner Name Role Phone Arsi Annette Primary Care Provider Unavailab Chad Gandhi Unavailable [phone] REASON FOR REFERRAL No Information MEDICATIONS Medication SIG (Take, Route, Fr equency, Duration) Notes Start Date End Date Status Tums Not-Taking Prilosec 20 MG 1 Orally QAM Ac tive Tylenol Not-Taking IMMUNIZATIONS Vaccine Route Administration Date Status Comme nts Influenza Unknown 04/03/2020 Administered SOCIAL HISTORY Tobacco Use: Social History Observation Description Date Details (start date - stop date) Never Smoker NA - NA Sex Assigned At : Social History Observation Description Sex Assigned At Unknown Tobacco Use/Smoking Question Answer Notes Patient is a nonsmoker Alcohol Screen Question Answer Notes Did you have a drink contain ing alcohol in the past year? Yes How often did you have a dri nk containing alcohol in the past year? Monthly or less (1 point) How many drinks did you have on a typical day when you were drinking in the past year? 1 or 2 drinks (0 point) How often did you have 6 or more drinks on one occasion in the past year? Never (0 point) Points 1 Interpretation Negative PROBLEMS Problem Type ICD Code Onset Dates Problem Status W/U Status Risk SNOMED Code Notes Problem Dysphagia (R13.10) Active confirmed Dysphagia (84921766) Problem GERD (gastroesophag eal reflux disease) (K21.9) Active confirmed Gastroesophagea l reflux disease (707404407) Problem Esophageal dysphagia (R13.10) Active confirmed 13618619 Problem Achalasia (K22.0) Active confirmed 56654401 PLAN OF TREATMENT Pending Test Test Name Order Date Esophageal Motility study 07/02/2020 XR BARIUM SWALLOW-ESOPHAGUS 09/23/2020 Future Test Test Name Order Date UPPER GI ENDOSCOPY BALLOOON DILATION OF ESOPH 06/16/2020 Insurance Providers Payer Name Payer Address Payer Phone Subscriber Number Group Number Insured Name Patient Relationship to Insured Coverage Start Date Coverage End Date [facility] [address] [address] [place], [place] [id number] ODALIS CARIAS Self - patient is the insured MEDICAL (GENERAL) HISTORY Medical History History ICD Code Denies [place],DM,CVA,Lung disease,renal dise ase GERD/Dysphagia--her workup w ith an upper endoscopy in June of 2020, esophageal motility studies in August 2020, and a barium swallow in October of 2020 are all consistent with what appears to be achalasia--the esophageal motility studies revealed very severe esophageal motility disturbance although surprisingly the lower esophageal sphincter actually relaxes normally; the upper endoscopy revealed a somewhat dilated esophagus with diminished peristalsis, as well as some puckering at the gastroesophageal junction which was dilated with a large balloon but without much clinical effect; a barium swallow was also quite consistent with achalasia as well COVID in 02/2020 Surgical History Surgery Date(Month/Year)
--- OUTSIDE RECORDS SUMMARY | 2024-05-10 13:09 | XMS_ITS | Clinical Summary ---
[facility] Address [address] [place] [address] Care Team Providers Care Desk Reporter Name Role Phone Unavailable Primary Care Provider Unavailabl e Allergies No known active allergies Medications Medication Sig Dispensed Refills Start Date End Date Status Vit-Fe Fumarate-FA ( PLUS) 27-1 MG TABS tablet Take 1 tablet by mouth every morning after breakfast. 0 Active docusate sodium 100 MG CAPS Take 100 mg by mouth 2 (two) times a day as needed for constipation. 10 capsule 0 12/19/2017 Active labetalol (NORMODYNE) 300 MG tablet Take 1 tablet (300 mg total) by mouth every 8 (eight) hours. 270 tablet 4 12/20/2017 Active NIFEdipine (ADALAT CC) 30 MG 24 hr tablet Take 1 tablet (30 mg total) by mouth daily. 90 tablet 3 12/21/2017 Active Active Problems Problem Noted Date Diagnosed Date Threatened premature labor in third trimester Chronic hypertension with superimposed pre-eclam psia 12/17/2017 Preeclampsia complicating hypertension 8 Social History Tobacco Use Types Packs/Day Years Used Date Smoking Tobacco: Former Cigarettes Q uit: 03/16/2017 Smokeless Tobacco: Never Alcohol Use Standard Drinks/Week Comments No 0 (1 standard drink = 0.6 oz pur e alcohol) Sex and Gender Information Value Date Recorded Sex Assigned at Not on file Gender Identity Not on file Sexual Orientation Not on file Last Filed Vital Signs Vital Sign Reading Time Taken Comments Blood Pressure 151/97 12/21/2017 11:[address] arauz and dr ryan in room Pulse 88 12/21/2017 8:19 AM EDT Temperature 36.9 ??C (98.5 ??F) 12/21/2017 8 :19 AM EDT Respiratory Rate 16 12/21/2017 8:19 AM EDT Oxygen Saturation 98% 12/21/2017 8:1 9 AM EDT Inhaled Oxygen Concentration - - Weight 97.2 kg (214 lb 4.8 oz) 12/16/2017 11:35 AM EDT Height 165.1 cm (5' 5 ) 12/16/2017 10:0 6 AM EDT Body Mass Index 35.66 12/16/2017 10:06 AM EDT Plan of Treatment Health Maintenance Due Date Last Done Comments Hepatitis B Vaccines (1 of 3 - 3-dose series) 1982 Hepatitis C Screening 1982 COVID-19 Vaccine (#1) 05/26/1983 Depression Screening 1994 Preventative Health Evaluation 2000 DTap / Tdap / Td (1 - Tdap) 2001 Cervical Cancer Screening (P ap Smear) 11/24/2003 Influenza Vaccine (#1) 2023 Pneumococcal Vaccine Aged Out No long er eligible based on patient's age to complete this topic RSV Ped < 20 months Aged Out No longe r eligible based on patient's age to complete this topic Advance Directives For more information, please contact: [phone] Latest Code Status on File Code Status Date Activated Date Inactivated Comments Full Code 12/17/2017 9:22 PM 12/21/2017 7:34 PM This code status was ascertained in the following way: discussion with patient . Code Status History Code Status Date Activated Date Inactivated Comments Full Code 12/15/2017 8:53 PM 12/17/2017 9:22 PM This code status was ascertained in the following way: discussion with patient .
--- OUTSIDE RECORDS SUMMARY | 2024-05-10 13:09 | XMS_ITS | Clinical Summary ---
Author [facility] Address [address] [place] [address] Care Team Providers Care Cutting Machine Fixer Name Role Phone Unavailable Primary Care Provider Unavailabl e Medical History Medical History Date Comments Gestational diabetes DX:Gestatio nal diabetes;COMMENT:with first Hypertension DX:Hypertension Uterine fibroid DX:Uterine fibro id;COMMENT:small Social History Tobacco Use Types Packs/Day Years Used Date Smoking Tobacco: Former Cigarettes Q uit: 03/16/2017 Smokeless Tobacco: Never Alcohol Use Standard Drinks/Week Comments No 0 (1 standard drink = 0.6 oz pur e alcohol) Sex and Gender Information Value Date Recorded Sex Assigned at Not on file Gender Identity Not on file Sexual Orientation Not on file Obstetrics History Plan of Treatment Health Maintenance Due Date Last Done Comments Breast Cancer Screening 1982 Hepatitis B Vaccines (1 of 3 - 19+ 3-dose series) 2001 Cervical Cancer Screening: P ap Smear 11/24/2003 COVID-19 Vaccine (2023-2 5 season) 2023 Influenza Vaccine (#1) 2023 DTaP,Tdap,and Td Vaccines (2 - Td or Tdap) 11/10/2027 11/09/2017 HIB Vaccines Aged Out No longer eligi ble based on patient's age to complete this topic HPV Vaccines Aged Out No longer eligi ble based on patient's age to complete this topic Hepatitis A Vaccines Aged Out No long er eligible based on patient's age to complete this topic IPV Vaccines Aged Out No longer eligi ble based on patient's age to complete this topic MMR Vaccines Aged Out No longer eligi ble based on patient's age to complete this topic Meningococcal ACWY Vaccine Aged Out N o longer eligible based on patient's age to complete this topic Pneumococcal Vaccine: Pediat rics (0 to 5 Years) and At-Risk Patients (6 to 64 Years) Aged Out No longer eligi ble based on patient's age to complete this topic RSV Immunization Patients Un slime 20 months Aged Out No longer eligible b ased on patient's age to complete this topic Varicella Vaccines Aged Out No longer eligible based on patient's age to complete this topic
== END 2024-05-10 12:14 | disposition home or self-care (01) ==
PROVIDERS: Emergency Provider Emergency Medicine Emergency Medical Services; PCP Internal Medicine
DX: R07.81 Pleurodynia (principal); R07.89 Other chest pain; R05.9 Cough, unspecified; M94.0 Chondrocostal junction syndrome [Tietze]
CPT/HCPCS: 71101; 99282; 99283

== ENCOUNTER 2024-07-09 15:16 | Outpatient (REF) | payer OTHER, SELFPAY ==
--- OUTSIDE RECORDS SUMMARY | 2024-07-09 18:14 | XMS_ITS | Clinical Summary ---
Author Organization [facility] ity Address [address] [place] [address] Care Team Providers Care Salesperson Sewing Machines Name Role Phone Unavailable Primary Care Provider Unavailabl e Medical History Medical History Date Comments Gestational diabetes DX:Gestatio nal diabetes;COMMENT:with first Hypertension DX:Hypertension Uterine fibroid DX:Uterine fibro id;COMMENT:small Social History Tobacco Use Types Packs/Day Years Used Date Smoking Tobacco: Former Cigarettes Q uit: 03/16/2017 Smokeless Tobacco: Never Alcohol Use Standard Drinks/Week Comments No 0 (1 standard drink = 0.6 oz pur e alcohol) Comments Unknown Sex and Gender Information Value Date Recorded Sex Assigned at Not on file Legal Sex Female 9:04 AM EST Gender Identity Not on file Sexual [...] patient's age to complete this topic Meningococcal B Vaccine Aged Out No l onger eligible based on patient's age to complete [...]
--- OUTSIDE RECORDS SUMMARY | 2024-07-09 18:14 | XMS_ITS | Patient Health Record ---
Author Organization [facility] Address [address] [place] [address] Care Team Providers Care Receiving Associate Store Name Role Phone Annette Hurst Primary Care Provider Unavailab Chad Gandhi Unavailable [phone] Reason For Referral No Information Medications Medication SIG (Take, Route, Fr equency, Duration) Notes Start Date End Date Status Tums Not-Taking Prilosec 20 MG 1 Orally QAM Ac tive Tylenol Not-Taking Immunizations Vaccine Route Administration Date Status Comme nts Influenza Unknown 04/03/2020 Administered Social History Tobacco Use: Social History Observation Description Date Details (start date - stop date) Never Smoker NA - NA Tobacco Use/Smoking Question Answer Notes Patient is [...] Never (0 point) Points 1 Interpretation Negative Problems Problem Type SNOMED Code ICD Code Onset Dates Problem Status W/U Status Risk Notes Problem Dysphagia (76824954) Dysphagia (R13.10) Active confirmed Problem 33322590 Achalasia (K22.0) Active confirmed Problem Gastroesophageal reflux disease (818351881) GERD (gastroesophag eal reflux disease) (K21.9) Active confirmed Problem 70901133 Esophageal dysphagia (R13.10) Active confirmed Plan Of Treatment Pending Test Test Name Order Date Esophageal Motility study 07/02/2020 XR BARIUM SWALLOW-ESOPHAGUS 09/23/2020 Future Test Test Name Order Date UPPER GI ENDOSCOPY BALLOOON DILATION OF ESOPH 06/16/2020 Insurance Providers Payer Name Payer Address Payer Phone Subscriber Number Group Number Insured Name Patient Relationship to Insured Coverage Start Date Coverage End Date [facility] [address] [address] [place], [place] [id number] ODALIS CARIAS Self - patient is the insured Medical (General) History Medical History History ICD Code Denies [place],DM,CVA,Lung disease,renal dise ase GERD/Dysphagia--her workup w ith [...]
--- OUTSIDE RECORDS SUMMARY | 2024-07-09 18:14 | XMS_ITS | Clinical Summary ---
[facility] Organization [facility] Address [address] [place] [address] Care Team Providers Care Edger Operator Name Role Phone Unavailable Primary Care Provider [...] Advance Directives For more information, please contact: [phone] Latest Code Status on File Code Status [...]
--- OUTSIDE RECORDS SUMMARY | 2024-07-09 18:14 | XMS_ITS | Clinical Summary ---
Author Organization [facility] Address [address] [facility] [address] [place] [address] Phone Care Team Providers Care Baking Factory Worker Name Role Phone Annette Hurst MD Primary [...] [facility] [address] [address] Peng Martin MD [address] [address] Health Maintenance Due Date Last Done Comments Pneumococcal Vaccine: Pediat rics (0 to 5 Years) and At-Risk Patients (6 to 64 Years) (1 of 2 - PCV) 1988 Hepatitis B Vaccine (1 of 3 - 19+ 3-dose series) 11/23 Influenza Vaccine (Season Ended) 2024 Insurance [facility] Care Teams Baking Factory Worker Relationship Specialty Start Date End Date Annette Hurst MD [address] [place] [address] [place] [address] PCP - General Internal Medicine 10/09/23
== END 2024-07-09 15:17 | disposition home or self-care (01) ==
LOC: HO.MAMMO 15:16
PROVIDERS: PCP Internal Medicine; Visit Provider Internal Medicine
DX: Z12.31 Encounter for screening mammogram for malignant neoplasm of breast (principal)
CPT/HCPCS: 77063; 77067

== ENCOUNTER → 2024-07-09 16:15 | Outpatient (BNV) | payer OTHER, SELFPAY | PROVIDERS: PCP Internal Medicine; Visit Provider Internal Medicine | DX: Z12.31 Encounter for screening mammogram for malignant neoplasm of breast (principal) | CPT/HCPCS: 77063; 77067 ==

== ENCOUNTER 2024-09-27 18:53 | Emergency (ER) | payer OTHER, SELFPAY ==
[2024-09-27 19:21] VITALS: BP 119/69; BP 170/123; PULSE 66; PULSE 76; RESP 20; TEMP 36.6; O2SAT 99; BMI 25.8
--- NOTE | 2024-09-27 19:22 | ED.ANXIETY ---
HPI - Anxiety General Chief Complaint: Anxiety Stated Complaint: anxiety attack episode full body itch Time Seen by Provider: 09/27/24 21:04 Source: patient Mode of arrival: ambulatory Limitations: no limitations History of Present Illness ED Provider: Dr. Kendra Aldridge HPI narrative: patient comes to the emergency room complaining of 2 panic attacks today. Patient states that today what was different is that she had itchiness throughout her body. Patient states that she took 2 tablets of Children's Benadryl. At this time, patient is asymptomatic. Patient states that she is not SI or HI. Patient states that she is currently working with a psychiatrist and a psychologist and her medications are slowly being changed. Patient has no other complaints. Related Data Home Medications ?Medication ?Instructions ?Recorded ?Confirmed bupropion HCl 150 mg 24 hr tablet, 150 mg PO QAM 03/20/24 03/20/24 extended release losartan 100 mg tablet 100 mg PO DAILY 03/20/24 03/20/24 metoprolol succinate 100 mg 100 mg PO DAILY 03/20/24 03/20/24 tablet,extended release 24 hr sertraline 100 mg tablet 100 mg PO DAILY 03/20/24 03/20/24 Previous Rx's ?Medication ?Instructions ?Recorded cyclobenzaprine 5 mg tablet 5 mg PO BEDTIME PRN muscle spasm 05/12/24 #7 tabs hydrocortisone 1 %-pramoxine 1 % 1 appl NV TID-QID PRN hemorrhoids 06/07/24 rectal foam (Proctofoam HC) #10 grams Allergies Allergy/AdvReac Type Severity Reaction Status Date / Time No Known Allergies (No Known Allergy Verified 09/27/24 19:24 Allergies*) Review of Systems Review of Systems: Constitutional : No Weight loss, No Fever, No Chills, No Night Sweats, No Fatigue, No Malaise ENT/Mouth : No Hearing loss, No Ear Pain, No Nasal Congestion, No Sinus Pain, No Hoarseness, No sore throat, No Rhinorrhea, No Swallowing Difficulty Eyes: No Eye Pain, No Swelling, No Redness, No Foreign Body, No Discharge, No Vision Changes Cardiovascular : No Chest Pain, No SOB, No Dyspnea on Exertion, No Orthopnea, No Edema, No Palpitations Respiratory : No Cough, No Sputum, No Wheezing, No Smoke Exposure, No Dyspnea Gastrointestinal : No Nausea, No Vomiting, No Diarrhea, No Constipation, No abdominal Pain, No Hematochezia, No Melena Genitourinary : no irregular bleeding, No Dysuria, No Urinary Frequency, No Hematuria, No Urinary Incontinence, No Urgency, No Flank Pain, No Urinary Flow Changes, No Hesitancy Musculoskeletal : No joint pain, No Myalgias, No Joint Swelling Skin : No Skin Lesions, No rash Neuro : No Weakness, No Numbness, No Paresthesias, No Loss of Consciousness, No Dizziness, No Headache Psych : Complaining of anxiety / 2 panic attack,No Depression, No SI/HI/AH/VH, No Social Issues, Heme/Lymph: No Bruising, No Bleeding,No Lymphadenopathy Endocrine : No Polyuria, No Polydipsia, No Temperature Intolerance PMFSH Past Medical History Medical History Hx gestational diabetes History of dysphagia GERD (gastroesophageal reflux disease) White coat syndrome with hypertension HTN (hypertension) Lab test negative for COVID-19 virus History of COVID-19 Surgical History (Updated 03/20/24 @ 10:59 by Amol Gould MD) H/O esophagogastroduodenoscopy No significant past surgical history Social History Social History Are you a primary rn critical care to a significant other at home: Yes (3 children) Do you presently have visiting nurse or other home services: No Advance Directives: No Advance Directives Information Provided: Yes Physical Exam Vital Signs: Vital Signs: Last Vital Signs Temp 98 F 09/27/24 19:21 Pulse 66 09/27/24 19:21 Resp 20 09/27/24 19:21 BP 119/69 09/27/24 19:21 Pulse Ox 99 09/27/24 19:21 O2 Del Method Room Air 09/27/24 19:21 BMI result Body Mass Index 25.8 Const: Other: Appearance: Alert. Oriented X3. No acute distress. Eyes: Pupils equal, round and reactive to light. ENT: Pharynx normal. Neck: Normal inspection. Neck supple. No lymph nodes noted. No crepitus CVS: Normal heart rate and rhythm. Pulses normal. Normal S1 and S2 Respiratory: No respiratory distress. Breath sounds normal. No Wheezing. No rales Abdomen: Soft and nontender. No rigidity. No distention. Skin: Skin warm and dry. Normal skin color. Normal skin turgor. Extremities: No lower extremity edema. No Lacerations. No Rash Neuro: Oriented X 3. No motor deficit. No sensory deficit. Moving all extremities. No slurred speech. CN 2 through 12 grossly intact Psych: calm, cooperative, normal affect, no longer anxious Course Course Course Narrative: 09/27/241921 SYDNIE Porter This is a Rapid Medical Examination (RME) performed by Lenora Vázquez PA-C in triage. Full HPI, ROS, assessment and treatment plan per primary provider in the Main ED. Hx: 43 yo F BIBA for eval of panic attack. reports increased anxiety/ frequency of panic attacks. home meds not working anymore (bupropion, sertraline). had a panic attack while driving today, pulled over and it resolved. on arriving home, began to have another panic attack, called EMS. looking for med adjustments. Plan: labs Medical Decision Making Medical Decision Making [facility] Narrative: my interpretation of labs: No abnormality in patient's hematology and chemistry. Patient is asymptomatic vitals are stable patient is already set up with Psychology and Psychiatry patient states that she feels well and declined any further assistance. Lab Data 09/27/24 19:31 09/27/24 19:31 Labs: Lab Results 09/27/24 Range/Units 19:31 WBC 13.9 H (4.8-10.8) X10*3/uL RBC 4.48 (4.20-5.50) X10*6/uL Hgb 13.3 (12.0-16.0) g/dl Hct 38.6 (37.0-47.0) % MCV 86.2 (80.0-98.0) fL MCH 29.7 (27.0-33.0) pg MCHC 34.5 (31.0-35.0) g/dl RDW 13.3 (11.0-16.0) % Plt Count 292 (160-400) X10*3/uL MPV 9.0 L (9.4-12.3) fL Immature Gran % (Auto) 0.4 (0.0-0.4) % Neut % (Auto) 71.2 (45-73) % Lymph % (Auto) 22.8 (20-40) % [place] % (Auto) 5.1 (2-11) % Eos % (Auto) 0.1 (0-4) % Baso % (Auto) 0.4 (0-2) % Lymph # (Auto) 3.2 (1.2-4.9) X10*3/uL [place] # (Auto) 0.7 (0.1-1.2) X10*3/uL Eos # (Auto) 0.0 (0.0-0.4) X10*3/uL Baso # (Auto) 0.1 (0.0-0.2) X10*3/uL Abs Immat Gran (auto) 0.05 H (0.00-0.03) X10*3/uL Absolute Neuts (auto) 9.9 H (2.0-8.3) x10*3/uL Absolute Nucleated RBC 0.000 (0.0-0.012) X10*3/uL Nucleated RBC % (auto) 0.0 (0.0-0.2) /100WBC Sodium 140 (135-145) mmol/L Potassium 3.6 (3.3-5.1) mmol/L Chloride 105 (96-108) mmol/L Carbon Dioxide 24 (22-29) mmol/L Anion Gap 15 (12-20) BUN 9 (9-16) mg/dL Creatinine 0.81 (0.5-1.4) mg/dL Estim Creat Clear Calc 89.8 Estimated GFR > 60 Random Glucose 85 (60-115) mg/dL Calcium 9.4 (8.4-10.2) mg/dL Magnesium 1.8 (1.6-2.6) mg/dL Total Bilirubin 0.3 (0.0-1.0) mg/dL AST 25 (5-31) U/L ALT 20 (0-31) U/L Alkaline Phosphatase 52 (39-117) U/L Total Protein 7.4 (6.5-8.0) g/dL Albumin 4.5 (3.5-5.0) g/dL Discharge Plan Discharge Clinical Impression: Acute anxiety Patient Disposition: Home, Self-Care Instructions: Anxiety (ED) Additional Instructions: Please follow-up with your primary care physician tomorrow. If you have any worsening or new symptoms, please return to the emergency room or call 911 Prescriptions: No Action Proctofoam HC 1-1 % foam 1 appl NV TID-QID PRN (Reason: hemorrhoids) Qty: 10 0RF cyclobenzaprine 5 mg tablet 5 mg PO BEDTIME PRN (Reason: muscle spasm) Qty: 7 0RF metoprolol succinate 100 mg tablet extended release 24 hr 100 mg PO DAILY bupropion HCl 150 mg tablet extended release 24 hr 150 mg PO QAM sertraline 100 mg tablet 100 mg PO DAILY losartan 100 mg tablet 100 mg PO DAILY Print Language: Mauritanian
[2024-09-27 19:34] LABS: MANUAL DIFF FLAG NO
[2024-09-27 19:35] LABS: Basophils Absolute Auto 0.1 X10*3/uL (0.0-0.2); Basophils Percent Auto 0.4 % (0-2); Eosinophils Percent Auto 0.1 % (0-4); Hematocrit 38.6 % (37.0-47.0); Hemoglobin 13.3 g/dl (12.0-16.0); Imm Gran Abs Auto 0.05 X10*3/uL (0.00-0.03); Imm Gran Pct Auto 0.4 % (0.0-0.4); Lymphocytes Absolute Auto 3.2 X10*3/uL (1.2-4.9); Lymphocytes Percent Auto 22.8 % (20-40); Mean Corpuscular HGB Conc 34.5 g/dl (31.0-35.0); Mean Corpuscular Hemoglobin 29.7 pg (27.0-33.0); Mean Corpuscular Volume 86.2 fL (80.0-98.0); Monocytes Absolute Auto 0.7 X10*3/uL (0.1-1.2); Monocytes Percent Auto 5.1 % (2-11); Neutrophils Absolute Auto 9.9 x10*3/uL (2.0-8.3); Neutrophils Percent Auto 71.2 % (45-73); Platelet Count 292 X10*3/uL (160-400); Red Blood Count 4.48 X10*6/uL (4.20-5.50); Red Cell Distribution Width 13.3 % (11.0-16.0); White Blood Count 13.9 X10*3/uL (4.8-10.8)
[2024-09-27 19:48] LABS: Alanine Aminotransferase 20 U/L (0-31); Albumin Level 4.5 g/dL (3.5-5.0); Alkaline Phosphatase 52 U/L (39-117); Anion Gap 15 (12-20); Aspartate Amino Transferase 25 U/L (5-31); Bilirubin Total 0.3 mg/dL (0.0-1.0); Blood Urea Nitrogen 9 mg/dL (9-16); Calcium 9.4 mg/dL (8.4-10.2); Carbon Dioxide 24 mmol/L (22-29); Chloride 105 mmol/L (96-108); Creatinine Clr Calc Pharmacy 89.8; Estimated Glomerular Filt Rate > 60; Glucose Random 85 mg/dL (60-115); Magnesium 1.8 mg/dL (1.6-2.6); Potassium 3.6 mmol/L (3.3-5.1); Sodium 140 mmol/L (135-145); Total Protein 7.4 g/dL (6.5-8.0)
[2024-09-27 21:25] VITALS: BP 118/77; PULSE 63; RESP 16; TEMP 36.9; O2SAT 98
[2024-09-27 21:26] VITALS: BP 118/77; PULSE 63; RESP 16; TEMP 36.9; O2SAT 98
== END 2024-09-27 21:27 | disposition home or self-care (01) ==
PROVIDERS: Physician Assistant Medical; Emergency Provider Emergency Medicine; PCP Internal Medicine
DX: F41.9 Anxiety disorder, unspecified (principal); I10 Essential (primary) hypertension; Z79.899 Other long term (current) drug therapy
CPT/HCPCS: 36415; 80053; 83735; 85025; 99283; 99284

== ENCOUNTER 2025-02-24 10:25 | Outpatient (REF) | payer OTHER, SELFPAY ==
--- OUTSIDE RECORDS SUMMARY | 2025-02-24 12:54 | XMS_ITS | Clinical Summary ---
Author Organization [facility] Address [address] [place] [phone] Phone Care Team Providers Care Advertising Columnist Name Role Phone Annette Hurst MD Primary Care Provider Allergies No known active allergies Medications losartan-hydroC [...] 10/09/2023 11:53 AM EDT Plan of Treatment Health Maintenance Due Date Last Done Comments Hepatitis B Vaccine (1 of 3 - 19+ 3-dose series) 11/23 Pneumococcal Vaccine: Peds ( 0 to 5 Years) and At-Risk Patients (6 to 49 Years) (1 of 2 - PCV) 2001 Influenza Vaccine (#1) 2024 Insurance Member Subscriber Plan / Payer (Ef fective 2020-Present) Name:Yamel Root Relation to Subscriber:Self Name:Yamel Root Payer ID:Not on file Group ID:[id number] Type:Not on file Address: [place] [phone] Care Teams Advertising Columnist Relationship Specialty Start Date End Date Annette Hurst MD [address] [place] [address] [place] [phone] PCP - General Internal Medicine 10/09/23
--- OUTSIDE RECORDS SUMMARY | 2025-02-24 12:54 | XMS_ITS | Clinical Summary ---
Author Organization [facility] Address [address] [place] [address] Phone Care Team Providers Care Tankage Grinder Operator Name Role Phone Annette Hurst MD Primary Care Provider [phone] Allergies No known active allergies Medications ARIPiprazole (ABILIFY) 2 mg tablet Take 1 tablet (2 mg total) by mouth at bedtime. 11/12/2024 Active clonazePAM (KlonoPIN) 0.5 mg tablet TAKE 1 TABLET BY MOUTH TWICE A DAY NEEDED PANIC ATTACKS 01/06/2025 Active LORazepam (ATIVAN) 0.5 mg tablet Take 1 tablet (0.5 mg total) by mouth 2 (two) times a day if needed. 10/15/2024 Active losartan (COZAAR) 100 mg tablet Take 1 tablet (100 mg total) by mouth 1 (one) time each day. 12/08/2024 Active metoprolol succinate (TOPROL-XL) 100 mg 24 hr tablet Take 1 tablet (100 mg total) by mouth 1 (one) time each day. Active propranoloL (INDERAL) 20 mg tablet Take 1 tablet (20 mg total) by mouth 2 (two) times a day if needed. 01/06/2025 Active QUEtiapine (SEROquel) 100 mg tablet TAKE 1 TABLET BY MOUTH EVERY DAY AT NIGHT, STOP SEROQUEL 25MG 12/23/2024 Active venlafaxine XR (EFFEXOR-XR) 150 mg 24 hr capsule Take 1 capsule (150 mg total) by mouth 1 (one) time each day in the morning. 11/19/2024 Active acetaminophen (TYLENOL) 500 mg tablet Take 1 tablet (500 mg total) by mouth every 6 (six) hours if needed for moderate pain. Do not exceed 3 grams of Tylenol per day. 30 tablet 01/17/2025 Active oxyCODONE (ROXICODONE) 5 mg immediate release tablet Take 1 tablet (5 mg total) by mouth every 6 (six) hours if needed for severe pain. Max Daily Amount: 20 mg 15 each 01/17/2025 Active Active Problems Problem Noted Date Diagnosed Date Gastroesophageal reflux disease 01/14/2025 Overview (01/14/2025): Pt had achalasia. [facility] Skier's thumb, right, initial encounter 01/15/20 Closed displaced fracture of middle phalanx of right little finger with routine healing 01/14/2025 Closed displaced fracture of middle phalanx of right little finger with routine healing 01/14/2025 Closed displaced fracture of middle phalanx of right little finger with routine healing 01/14/2025 Closed displaced fracture of middle phalanx of right little finger 01/14/2025 Hypertension 10/08/2023 Pre-eclampsia added to pre-existing hypertension 12/15/2017 Encounters Date Type Department Care Team Description 02/14/2025 9:00 AM EST Evaluation [facility] [address] [place] [phone] Lanny Sarah OT Skier's thumb, right, initial encounter (Primary Dx); Surgery follow-up; Closed displaced fracture of middle phalanx of right little finger with routine healing 02/14/2025 8:30 AM EST Office Visit Orthopedic Surgery [facility] [address] [phone] Vandana Foreman MD Post-operative state (Primary Dx) 02/14/2025 Plan of Care Documentation [facility] [address] [place] [phone] 01/27/2025 10:00 AM EDT Office Visit Orthopedic Surgery [facility] [address] [phone] Tamara Tian PA Surgery follow-up (Primary Dx) 01/21/2025 11:45 AM EDT Office Visit Orthopedic Surgery - [place] 175 [facility] [address] [place] [phone] Vandana Foreman MD Skier's thumb, right, subsequent encounter (Primary Dx); Closed displaced fracture of middle phalanx of right little finger with routine healing 01/17/2025 1:27 PM EDT Anesthesia Event [facility] OR [address] [place] [phone] Aida Matson MD 01/17/2025 1:00 PM EDT - 01/17/2025 3:30 PM EDT Surgery [facility] OR [address] [place] [phone] Vandana Foreman MD ORIF right small finger middle phalanx & repair of avulsion fracture MP joint right thumb [28912 (CPT )] 01/17/2025 11:22 AM EDT - 01/17/2025 4:40 PM EDT Hospital Encounter [facility] OR [address] [place] [phone] Vandana Foreman MD Pain Discharge Disposition: Home or Self Care 01/15/2025 Telephone Orthopedic Surgery [facility] 250 175 [facility] [address] [place] [phone] Lora Daily 01/14/2025 11:15 AM EDT Consult Orthopedic Surgery [facility] 175 [facility] [address] [place] [phone] Vandana Foreman MD Skier's thumb, right, initial encounter (Primary Dx); Closed displaced fracture of middle phalanx of right little finger, initial encounter 01/06/2025 10:27 PM EDT - 01/06/2025 11:29 PM EDT Emergency [facility] Emergency [address] [place] [phone] Haley Norris MD Displaced fracture of distal phalanx of right little finger, initial encounter for closed fracture (Primary Dx) Discharge Disposition: Home or Self Care from Last 3 Months Surgical History Surgery Date Site/Laterality Comments ESOPHAGUS SURGERY HAND SURGERY 01/17/2025 Right Right thumb repair of ulnar collateral ligament, also pinning of middle phalanx fracture right small finger Medical History Medical History Date Comments Gestational diabetes DX:Gestatio nal diabetes;COMMENT:with first Hypertension DX:Hypertension Uterine fibroid DX:Uterine fibro id;COMMENT:small Anxiety Social History Tobacco Use Types Packs/Day Years Used Date Smoking Tobacco: Former Cigarettes 0 Q uit: 03/16/2017 Smokeless Tobacco: Never Alcohol Use Standard Drinks/Week Comments No 0 (1 standard drink = 0.6 oz pur e alcohol) occassionaly Interpersonal Safety Answer Date Record ed Physical Abuse Unrecognized value 01/17/2025 Verbal Abuse Unrecognized value 01/17/2025 Comments No Sex and Gender Information Value Date Recorded Sex Assigned at Female 01/28/2025 9:24 AM EDT Legal Sex Female 9:04 AM EST Gender Identity Female 01/28/2025 9:24 AM EDT Sexual Orientation Straight 01/28/2025 9: 24 AM EDT Obstetrics History Last Filed Vital Signs Vital Sign Reading Time Taken Comments Blood Pressure 102/66 01/17/2025 3:51 PM EDT Pulse 71 01/17/2025 3:51 PM EDT Temperature 36.3 C (97.3 F) 01/17/2025 3:51 PM EDT Respiratory Rate 16 01/17/2025 3:51 PM EDT Oxygen Saturation 95% 01/17/2025 3:51 PM EDT Inhaled Oxygen Concentration - - Weight 74.8 kg (165 lb) 01/21/2025 12:10 PM EDT Height 165.1 cm (5' 5 ) 01/21/2025 12:10 PM EDT Body Mass Index 27.46 01/21/2025 12:10 PM EDT Plan of Treatment Upcoming Encounters Date Type Department Care Team (Late st Contact Info) Description 03/05/2025 11:30 AM EST Treatment [facility] 175 [facility] [address] [place] [phone] Lanny Sarah OT 03/07/2025 8:15 AM EST Office Visit Orthopedic Surgery - [place] 175 [facility] [address] [place] [phone] Vandana Foreman MD 175 [facility] [address] [place] [phone] 03/12/2025 9:45 AM EST Treatment [facility] 175 [facility] [address] [place] [phone] Lanny Sarah OT Health Maintenance Due Date Last Done Comments Breast Cancer Screening 1982 Hepatitis B Vaccines (1 of 3 - 19+ 3-dose series) 2001 Cervical Cancer Screening: P ap Smear 11/24/2003 HPV Vaccines (1 - 3-dose SCD M series) 2009 Depression Screening 04/03/2024 COVID-19 Vaccine ( - 2024-2 6 season) 2024 Influenza Vaccine (#1) 2024 04/03/2020 Cholesterol Screening (Lipid Panel) 01/06/2025 HIV Screening 01/06/2025 Hepatitis C Screening 01/06/2025 Hypertension/CHF/CAD Annual BMP Blood Test 01/06/2025 12/17/2017, 12/17/2017, 12/15/2017 Social Influencers of Health Screening 01/06/2025 DTaP,Tdap,and Td Vaccines (2 - Td or Tdap) 11/10/2027 11/09/2017 RSV Immunization Adult Patients (1 - 1-dose 75+ series) 2057 HIB Vaccines Aged Out No longer eligi [...] age to complete this topic Pneumococcal Vaccine: Pediatrics (0 to 5 Years) and At-Risk Patients (6 to 49 Years) Aged Out No longer eligible b ased on patient's age to complete this topic RSV Immunization Patients Under 20 months Aged Out No longer eligible b ased on patient's age to complete this topic Varicella Vaccines Aged Out No longer eligible based on patient's age to complete this topic Goals Goal Patient Goal Type Associated Problems Recent Progress Patient-Stated? Author <enter goal here> General Yes Lanny Sarah, OT Note: OT PATIENT GOAL REGAIN FULL USE RIGHT HAND FOR ALL DAILY ACTIVITIES AND WORK OT STGS 10 TO 12 VISITS General No Lanny Sarah OT Note: # 1 FULL WOUND CARE # 2 NO VISIBLE EDEMA # 3 PARTICIPATE IN SCAR MANAGEMENT TO HAVE NO ADHERENCE # 4 IMPROVE RIGHT SUPINATION FROM 60 TO 70 DEGREES TO RECEIVE ITEMS INTO PAL # 5 IMPROVE WRIST EXTENSION FROM 50 TO 70 DEGREES WITH GOOD STRENGTH TO WEIGHTBEAR # 6 IMPROVE THUMB EXTENSION FROM 45 TO 55 DEGREES UPON REACH # 7 IMPROVE THUMB IP FLEXION FROM 20 TO 45 DEGREES TO PERFORM IN HAND MANIPULATION OF COINS # 8 ACHIEVE ALL DIGIT FLEXION TO THE DPC # 9 ACHIEVE RIGHT CHAIRMAN & CEO TO AT LEAST 40 POUNDS = 50 PERCENT OF THE LEFT Medical Devices Implanted Type Area Reed Press Feeder Device Identifier Shelf Expiration Date Model / Serial / Lot [place] Sut Quick Mini 3-0 Orth - Sn/A - [id number] Implanted:Qty: 1 on 01/17/2025 by Vandana Foreman MD at [facility] Arthroscopy Implants Sports Med Right: Thumb JNJ DEPUY MITEK 10/31/2026 [id number] / N/A / [id number] Kwire Troc .035 De [id number] - Sn/A - [id number] Implanted:Qty: 2 on 01/17/2025 by Vandana Foreman MD at [facility] Right: Fingers [employer] [id number] 40 / N/A / N/A Procedures Procedure Name Priority Date/Time Associated Diagnosis Comments XR FINGERS 2+ VIEWS RIGHT Routine 2024 9:01 AM EST Post-operative state XR FINGERS 2+ VIEWS RIGHT Routine 2024 10:40 AM EDT Skier's thumb, right, subsequent encounter Thumb pain, right Finger pain, right CAST APPLICATION Routine 01/27/2025 10:00 AM EDT Surgery follow-up CAST APPLICATION Routine 01/21/2025 11:45 AM EDT Skier's thumb, right, subsequent encounter OXYGEN THERAPY, ADULT Routine 01/17/2025 3:12 PM EDT OXYGEN THERAPY, ADULT Routine 01/17/2025 3:12 PM EDT TH AN LMA(NO CHARGE) Routine 01/17/2025 1:[address] REPAIR OF COLLATERAL LIGAMENT METACARPOPHALANGEAL INTERPHALANGEAL JT 01/17/2025 1:27 PM EDT Skier's thumb, right, initial encounter Closed displaced fracture of middle phalanx of right little finger, initial encounter Case Notes MINI C-ARM, MINI MITEK ANCHOR,MICRO ANCHOR AVAILABLE,STRYER MODULAR HAND SET, K-WIRES Special Needs [facility], 90 minutes-220 minutes of operative time TH AN NERVE BLOCK SUPRACLAVICULAR (NO CHARGE) Routine 01/17/2025 1:15 PM EDT TH AN NERVE BLOCK SUPRACLAVICULAR (CHARGE) Routine 01/17/2025 1:15 PM EDT POC PREGANCY, URINE NO CHARGE SCREENING MANUALLY RESULTED Routine 01/17/2025 11:59 AM EDT XR HAND 3+ VIEWS RIGHT STAT 10:26 PM EDT from Last 3 Months Results * XR Fingers 2+ Views Right (02/14/2025 9:01 AM EST) Only the most recent of2 resultswithin the time period is included. Anatomical Region Laterality Modality Upper Extremities, Fingers Right Compu vahe Radiography Narrative 02/16/2025 8:04 PM EST AP, lateral, oblique of the right small finger was obtained on 02/14/2025. It shows a comminuted middle phalanx fracture that has been pinned. There is 1 longitudinal oblique pin and then 1 pin going from dorsal to palmar. Compared to prior images it looks like there was initial loss of reduction but overall alignment maintained and joint looks reasonably congruent. It has not changed since. No backing out significantly of any of the hardware. Vandana Foreman MD IMG XR PROCEDURES Final Resul t * Casting (01/27/2025 10:00 AM EDT) Tamara Bolivar PA - 01/27/2025 10:00 AM EDT SYDNIE Portillo 01/27/2025 3:12 PM Casting Performed by: SYDNIE Portillo Authorized by: SYDNIE Portillo Informed Consent: Laterality: Right Relevant images/test results available and reviewed: yes Health status cleared: Yes Procedure/treatment, purpose, treatment alternatives, risks/potential complications and benefits explained: yes Risk/complications/benefits details: Cast precautions given Patient questions answered: yes Patient agrees, verbalizes understanding, and wants to proceed: yes Consent given by: Patient Informed consent discussion completed by Physician/JABARI with patient: Verbal Pre-procedure timeout performed: yes Location: Hand Site: Right hand Distal Perfusion: normal Distal Sensation: normal Immobilization: Cast Cast Type: Thumb spica [place] Cast?: no [place] Cast Modifications: cast removal Supplies Used: Thermoplastics, strapping, fasteners, padding, and other materials Result [facility] Tamara OTOOLE IN CLINIC/BEDSIDE ORDERABLES Edited Result - Final * Casting (01/21/2025 11:45 AM EDT) Vandana Ji MD - 01/21/2025 11:45 AM EDT Vandana Foreman MD 01/22/2025 10:40 PM Casting Performed by: Vandana Foreman MD Authorized by: Vandana Foreman MD Informed Consent: Laterality: Right Relevant images/test results available and reviewed: yes Location: Wrist Site: Right wrist Immobilization: Cast Cast Type: Thumb spica [place] Cast?: no [place] Run Cast Supplies Used: Ortho-Glass Comments: Patient was placed in stockinette, cotton padding, and an Ortho-Glass thumb spica cast uneventfully. She tolerated it well Vandana Foreman MD IN CLINIC/BEDSIDE ORDERABLES Final Result * TH AN LMA(NO CHARGE) (01/17/2025 1:43 PM EDT) Chandni Escobar CRNA - 01/17/2025 1:43 PM EDT Chandni Strickland CRNA 01/17/2025 1:43 PM General Information and Staff Patient location during procedure: OR Resident/PURCHASING INTERN: Chandni Strickland CRNA Performed: resident/PURCHASING INTERN/CAA Performed by: Chandni Strickland CRNA Authorized by: Aida Matson MD Intubation Airway not difficult Reason: elective Final Airway Details LMA Size: 4 LMA Type: Unique LMA Seal Pressure:20 Final airway type: LMA Indications and Patient Condition Indications for airway management: anesthesia and airway protection Sedation level: Yes Preoxygenated: yesSoft Tissue Damage: No Dentition Unchanged: Yes Patient position: sniffing MILS maintained throughout Mask difficulty assessment: 0 - not attempted Aida Matson MD ANESTHESIA ORDERABLES Final Res ult * TH AN NERVE BLOCK SUPRACLAVICULAR (CHARGE), TH AN NERVE BLOCK SUPRACLAVICULAR (NO CHARGE) (01/17/2025 1:15 PM EDT) Aida Koenig MD - 01/17/2025 1:15 PM EDT Aida Matson MD 01/17/2025 1:41 PM Peripheral Block Patient location during procedure: pre-op Start time: 01/17/2025 1:15 PM End time: 01/17/2025 1:26 PM Reason for block: at surgeon's request Staffing Performed: anesthesiologist Anesthesiologist: Aida Matson MD Preanesthetic Checklist Completed: patient identified, IV checked, site marked, risks and benefits discussed, surgical consent, monitors and equipment checked, pre-op evaluation and timeout performed Peripheral Block Patient position: sitting Prep: ChloraPrep Patient monitoring: heart rate, control systems eng and continuous pulse ox (NIBP monitoring as well.) Block type: supraclavicular Laterality: right Injection technique: single-shot Guidance: ultrasound guided Needle Needle type: nerve stimulator Needle gauge: 20 G Needle length: 9 cm Needle localization: anatomical landmarks and ultrasound guidance Medications Administered bupivacaine PF (MARCAINE) injection 0.5% - peripheral nerve block 30 mL - 01/17/2025 1:22:00 PM midazolam (VERSED) injection 1 mg/mL - intravenous 4 mg - 01/17/2025 1:15:00 PM Assessment Injection assessment: negative aspiration for heme, no paresthesia on injection, incremental injection with negative aspiration q 5ml and local visualized surrounding nerve on ultrasound Paresthesia pain: none Heart rate change: no Slow fractionated injection: yes Additional Notes Procedure performed at surgeons request and for post operative pain management. Local anesthetic administration appropriately visualized in the perineural space. us Aida Matson MD ANESTHESIA ORDERABLES Edited Re sult - Final * POC , urine NO CHARGE screening manually resulted (01/17/2025 11:59 AM EDT) HCG, Ur POC Negative Negative POC hCG Int QC Pass? Yes Yes Urine Urine specimen obtained by clean catch procedure / Unknown 01/17/2025 11:59 AM EDT Vandana Foreman MD POINT OF CARE TEST ENTER/EDIT ORDERABLES Final Result * XR Hand 3+ Views Right (01/06/2025 10:26 PM EDT) Anatomical Region Laterality Modality Upper Extremities, Hand Right Radiogra phic Imaging 01/07/2025 9:34 AM EDT Impressions 01/07/2025 9:38 AM EDT Mildly displaced, acute fracture of the fifth middle phalanx. There is also a chip fracture of the medial aspect of the base of the first proximal phalanx which is felt likely to be chronic; clinical correlation for pain in this area is recommended. Code 05056 -------- FINAL REPORT -------- Dictated By: Modesto Burns Dictated Date: 01/07/2025 09:34 ET Assigned Physician: Modesto Burns Reviewed and Electronically Signed By: Modesto Burns Signed Date: 01/07/2025 09:38 ET Workstation ID: [id number] Transcribed By: Self Edit Transcribed Date: 01/07/2025 09:34 ET Narrative 01/07/2025 9:38 AM EDT HISTORY: The patient is a 44-year-old female with pain in the right fifth finger following trauma. FINDINGS: AP, lateral, and oblique views of the right hand are obtained. There is a mildly displaced, acute appearing fracture of the fifth middle phalanx. This extends from the base to the lateral aspect of the distal diaphysis. The fracture line appears to approach but not definitely extend into the articular surface of the base of the second middle phalanx. Also noted is a minimally displaced, tip fracture of the medial aspect of the base of the first proximal phalanx, which is likely chronic. No soft tissue abnormality is seen. Procedure Note Modesto Burns MD - 01/07/2025 HISTORY: The patient is a 44-year-old female with pain in the right fifthfinger following trauma. FINDINGS: AP, lateral, and oblique views of the right hand are obtained.There is a mildly displaced, acute appearing fracture of the fifth middlephalanx. This extends from the base to the lateral aspect of the distaldiaphysis. The fracture line appears to approach but not definitely extendinto the articular surface of the base of the second middle phalanx. Alsonoted is a minimally displaced, tip fracture of the medial aspect of thebase of the first proximal phalanx, which is likely chronic. No softtissue abnormality is seen. IMPRESSION: Mildly displaced, acute fracture of the fifth middle phalanx. There isalso a chip fracture of the medial aspect of the base of the firstproximal phalanx which is felt likely to be chronic; clinical correlationfor pain in this area is recommended. Code 49903 -------- FINAL REPORT -------- Dictated By: Modesto Burns Dictated Date: 01/07/2025 09:34 ET Assigned Physician: Modesto Burns Reviewed and Electronically Signed By: Modesto Burns Signed Date: 01/07/2025 09:38 ET Workstation ID: [id number] Transcribed By: Self Edit Transcribed Date: 01/07/2025 09:34 ET Larissa Arzola MD IMG XR PROCEDURES Final Result from Last 3 Months Insurance * Guarantor: Odalis Root Account Type Relation to Patient Date of Phone Billing Address Personal/Family Self 1980 [address] [facility] [address] [place] [phone] [facility] Advance Directives * Full Code - Default (Latest Code Status on File) Date Activated Date Inactivated Comments 01/17/2025 11:33 AM 01/17/2025 6:51 PM This is o rder is used when code status has not been discussed with the patient, or code status is otherwise unknown/unconfirmed To update the patient's code status, place a code status order. Do not modify or discontinue any currently active code status orders. Care Teams Tankage Grinder Operator Relationship Specialty Start Date End Date Annette Hurst MD [address] [place] [address] [place] [address] PCP - General Internal Medicine 01/06/25
[2025-02-24 13:19] LABS: MANUAL DIFF FLAG NO
[2025-02-24 13:23] LABS: Hematocrit 41.6 % (37.0-47.0); Hemoglobin 13.4 g/dl (12.0-16.0); Imm Gran Abs Auto 0.01 X10*3/uL (0.00-0.03); Imm Gran Pct Auto 0.1 % (0.0-0.4); Lymphocytes Absolute Auto 3.0 X10*3/uL (1.2-4.9); Mean Corpuscular HGB Conc 32.2 g/dl (31.0-35.0); Mean Corpuscular Hemoglobin 30.0 pg (27.0-33.0); Mean Corpuscular Volume 93.3 fL (80.0-98.0); NRBC Abs Auto 0.000 X10*3/uL (0.0-0.012); NRBC Pct Auto 0.0 /100WBC (0.0-0.2); Platelet Count 289 X10*3/uL (160-400); Red Blood Count 4.46 X10*6/uL (4.20-5.50); White Blood Count 6.7 X10*3/uL (4.8-10.8)
[2025-02-24 14:38] LABS: Alanine Aminotransferase 22 U/L (0-31); Albumin Level 4.4 g/dL (3.5-5.0); Alkaline Phosphatase 45 U/L (39-117); Anion Gap 10 (12-20); Aspartate Amino Transferase 36 U/L (5-31); Blood Urea Nitrogen 9 mg/dL (9-16); Calcium 9.1 mg/dL (8.4-10.2); Carbon Dioxide 29 mmol/L (22-29); Chloride 104 mmol/L (96-108); Cholesterol 132 mg/dL (<200); Estimated Glomerular Filt Rate > 60; HDL Cholesterol 57 mg/dL (>40); Potassium 3.9 mmol/L (3.3-5.1); Sodium 139 mmol/L (135-145); Total Protein 6.9 g/dL (6.5-8.0); Triglycerides 142 mg/dL (<150)
== END 2025-02-24 10:26 | disposition home or self-care (01) ==
LOC: HO.10HDL 10:25
PROVIDERS: Visit Provider Internal Medicine
DX: Z00.00 Encounter for general adult medical examination without abnormal findings (principal); E78.00 Pure hypercholesterolemia, unspecified; F17.221 Nicotine dependence, chewing tobacco, in remission; I10 Essential (primary) hypertension
CPT/HCPCS: 36415; 80053; 80061; 85025